=== PATIENT | female | born 1955 ===

== ENCOUNTER 2023-03-12 08:07 | Emergency (ER) | payer MEDICARE, OTHER ==
[2023-03-12] MEDS ORDERED: Ondansetron 4 MG/2 ML SDV IVPUSH ONE (08:21)
[2023-03-12] MEDS ORDERED: Lactated Ringers 1,000 ML IV SCH ×2 (08:30→09:45)
[2023-03-12 08:39] LABS: BICARBONATE,VENOUS 29 mEq/L (23-28); PCO2 VENOUS 48 mmHG (41-51); PH,VENOUS 7.39 (7.31-7.41)
[2023-03-12 08:40] LABS: PO2 VENOUS < 30 mmHG
[2023-03-12 08:45] LABS: BASOPHILS PERCENT AUTO 0.2 % (0.0-1.5); EOSINOPHILS PERCENT AUTO 0.5 % (0.0-7.0); HEMATOCRIT 42.3 % (36.0-46.0); HEMOGLOBIN 13.9 g/dL (12.0-16.0); LYMPHOCYTES ABSOLUTE AUTO 1.3 K/uL (0.6-2.4); LYMPHOCYTES PERCENT AUTO 32.8 % (16.0-40.0); MEAN CORPUSCULAR HEMOGLOBIN 28.4 pg (27.0-32.0); MEAN CORPUSCULAR HGB CONC 32.9 g/dL (31.0-37.0); MEAN CORPUSCULAR VOLUME 86.5 fL (80.0-98.0); MONOCYTES ABSOLUTE AUTO 0.4 K/uL (0.0-0.8); MONOCYTES PERCENT AUTO 10.3 % (0.0-15.0); NEUTROPHILS ABSOLUTE AUTO 2.3 K/uL (1.4-5.7); NEUTROPHILS PERCENT AUTO 56.2 % (48.0-80.0); NRBC ABSOLUTE 0 K/uL; PLATELET COUNT,PLT 156 K/uL (150-400); RED BLOOD CELL COUNT 4.89 M/uL (4.30-5.90); WHITE BLOOD CELL COUNT,WBC 4.06 K/uL (4.0-11.0)
[2023-03-12 09:13] LABS: A/G RATIO 0.9 (0.9-1.6); ALBUMIN 3.5 g/dL (3.4-5.0); BILIRUBIN TOTAL 0.8 mg/dL (0.2-1.0); CALCIUM 8.6 mg/dL (8.5-10.1); CARBON DIOXIDE,CO2 28.3 mmol/L (21.0-32.0); CREATININE 0.8 mg/dL (0.6-1.0); EST CRCL DRUG DOSING (CG) 57.31 mL/min; MAGNESIUM 1.9 mg/dL (1.8-2.4); POTASSIUM,K 3.4 mmol/L (3.5-5.1); PROTEIN TOTAL,TP 7.6 g/dL (6.4-8.2)
[2023-03-12] MEDS ORDERED: Ketorolac 30 MG/ML SDV IVPUSH ONE (09:40)
[2023-03-12] MEDS ORDERED: Acetaminophen 325 MG Tab PO ONE (09:40)
[2023-03-12 10:50] LABS: APPEARANCE,URINE SLT CLOUDY; BILIRUBIN,URINE NEGATIVE (NEGATIVE); COLOR,URINE YELLOW; GLUCOSE,URINE NEGATIVE (NEGATIVE); KETONES,URINE TRACE mg/dL (NEGATIVE); LEUKOCYTE ESTERASE,URINE MODERATE (NEGATIVE); NITRITE,URINE NEGATIVE (NEGATIVE); OCCULT BLOOD,URINE NEGATIVE (NEGATIVE); PH,URINE 6.5 (5.0-8.0); PROTEIN,URINE NEGATIVE (NEGATIVE)
[2023-03-12 11:14] LABS: BACTERIA,URINE FEW (NEGATIVE); EPITHELIAL CELLS,URINE OCCASIONAL (NONE-FEW)
[2023-03-12 11:15] LABS: AMORPHOUS SEDIMENT,URINE LIGHT (NEGATIVE)
== END 2023-03-12 12:54 | disposition home or self-care (01) ==
LOC: MW.ED 08:07
DX: U07.1 COVID-19 (principal); E10.9 Type 1 diabetes mellitus without complications; Z79.4 Long term (current) use of insulin; Z79.899 Other long term (current) drug therapy; Z88.8 Allergy status to other drugs, medicaments and biological substances
CPT/HCPCS: 36415; 80053; 81001; 82010; 82803; 82947; 83690; 83735; 85025; 87086; 93005; 96361; 96374; 96375; 99284; A9270; J1885; J2405; J7120; U0002; 93010